=== PATIENT | male | born 1990 | race Caucasian/White ===

== ENCOUNTER 2025-07-02 20:55 | Emergency (ER) | payer BC, SELFPAY ==
[2025-07-02 20:58] VITALS: BP 119/82
--- NOTE | 2025-07-02 22:30 | ED.GENMED ---
History of Present Illness
General
Chief Complaint: Musculo-Skeletal Complaint
Source: patient
Exam Limitations: none
Time Seen by Provider: 07/02/25 22:03
Nursing documentation reviewed up to this point in time: agreed with
History of Present Illness
History of Present Illness:
35-year-old male presenting to the emergency department today with concerns of left ankle discomfort after twisting his ankle stepping off a curb earlier today. Difficulty ambulating since. Denies any numbness weakness. Denies significant
injuries to the ankle in the past.
Review of Systems
Review of Systems
Allergies reviewed?: Yes
All Other Systems: ROS reviewed and negative except as documented in HPI and ROS
Phy Exam
Physical Exam
Physical Exam:
GENERAL: Alert , in no apparent distress
EYE: pupils equal and reactive
NECK: Supple, no significant adenopathy.
ENT: o/p clr, mmm.
CARDIAC: Regular rate and rhythm .
LUNGS: Clear breath sounds bilaterally, no acute respiratory distress, no wheezes/rales/rhonchi
ABDOMEN: Soft, without focal tenderness, no r/g, no cvat
NEUROLOGICAL: Alert and oriented, no focal neuro deficits
SKIN: Warm and dry, skin intact.
MUSCULOSKELETAL: Swelling to the left lateral malleolus as well as tenderness to the area just anterior to the left lateral malleolus. No significant tenderness to the posterior aspect no tenderness to the medial malleolus or the base of the fifth
metatarsal. No pain to the Achilles midfoot or forefoot. Good pulses.
PSYCH: Normal and appropriate interaction.
Course
Orders/Labs/Results
Orders:
Orders
07/02/25 21:02
Ankle, left 3 view CR [CR Ankle - Left Min 3 Views ] Urgent
Comment:
Reason For Exam: injury
Vital Signs
Initial and Last Documented VS:
Initial Vital Signs
Temp Pulse Resp BP Pulse Ox
98.5 F 86 18 119/82 98
07/02/25 20:58 07/02/25 20:58 07/02/25 20:58 07/02/25 20:58 07/02/25 20:58
Last Documented Vital Signs
Temp Pulse Resp BP Pulse Ox
98.5 F 86 18 119/82 98
07/02/25 20:58 07/02/25 20:58 07/02/25 20:58 07/02/25 20:58 07/02/25 20:58
MDM/Problems Addressed
MDM/Problems Addressed:
35-year-old male presenting to the emergency department today with concerns of an ankle sprain of the left ankle with his kids earlier today. Difficulty ambulating since. Here tenderness is mainly to the area just anterior to the left lateral
malleolus. Most consistent with a sprain. No evidence of grade 3 sprain no laxity. Achilles intact. Good pulses neuro vastly intact. X-ray without signs of fracture. Patient with likely sprain given protective boot and crutches as needed.
Return precautions given. Otherwise advised to follow-up with Ortho if symptoms persist.
*Pulse Oximetry
SaO2: 98
Oxygen Mode of Delivery: Room air
Patient hypoxic: no (98)
*Critical Care Note
Total Time (30-74mins, 75-104mins- exclusive of procedures): Not Applicable
ED Attending Note
-
Portions of this chart may have been created with voice recognition software.� Occasional wrong word or��sound alike� substitutions may have occurred due to the inherent limitations of voice recognition software.
Discharge Plan
Departure
Patient Disposition: Home (Routine Discharge)
Date of Disposition: 07/02/25
Time of Disposition: 22:32
Patient with high blood pressure during this ER visit?: No
Condition: Good
Covid-19: Not Applicable
Discharge Problem:
Left ankle sprain
Instructions: Ankle sprain - ED (DC)
Referrals:
Negrete,Kevin, MD [Active, Orthopedics] - Follow up in 1 week
UNKNOWN - PT DOES,NOT KNOW [Family Provider]
Stand Alone Forms: Return to Work
Activity Restrictions/Additional Instructions:
You came to the emergency department today due to an ankle injury. You had a normal x-ray and a reassuring examination. Your symptoms are consistent with an ankle sprain. This should improve over time. Please rest ice compress and elevate to
help with symptoms. You can weight-bear as tolerated. Please increase activity as symptoms allow. Return for any worsening, new or concerning symptoms.
Interventions
Interventions:
*Risk Screen - Suicide Last Done: 07/02/25 20:58
*Neglect/Abuse Screening Last Done: 07/02/25 21:01
Discharge Date and Time
Print Language: MALAY
[2025-07-02 22:39] VITALS: BMI 35.7
== END 2025-07-02 22:49 | disposition home or self-care (01) ==
LOC: EMR 20:55
PROVIDERS: EMERGENCY PHYSICIAN Emergency Medicine
DX: S93.402A Sprain of unspecified ligament of left ankle, initial encounter (principal); X50.1XXA Overexertion from prolonged static or awkward postures, initial encounter
CPT/HCPCS: 99283; 73610